=== PATIENT | female | born 1980 | race Caucasian/White ===

== ENCOUNTER 2018-01-10 12:43 | Emergency (ER) | payer OTHER ==
[~2018-01-10] VITALS: Ht 180.3 cm; Wt 72.6 kg
[~2018-01-10 12:43] MED LIST: ADVIL LIQUI-GE200 MG PO; DIFLUCAN150 MG PO; FLEXERIL PO; IBUPROFEN 800800 MG PO; KEFLEX500 MG PO; MEDROXYPROGESTERONE; NAPROSYN500 M1 PO; NAPROSYN500 MG PO; NOHOMEMEDICATIONS; NORCO 5-325 TA1 EACH PO; NORFLEX100 MG PO; PERCOCET 5-3251 EACH PO; PROAIR HFA8.5 GM IH; ROBAXIN500 MG PO; TRAMADOL 50 MG50 MG PO; VICODIN 5-3001 EACH PO; ZPAK PO
[2018-01-10 13:24] LABS: INFLUENZA A ANTIGEN None Detected (None Detect); INFLUENZA B ANTIGEN None Detected (None Detect)
[2018-01-10] MEDS ORDERED: PREDNISONE 10 M10 MG PO (13:31)
[2018-01-10] MEDS ORDERED: NORCO 5-325 TA1 EACH PO (13:31)
[2018-01-10] MEDS ORDERED: ZOVIRAX400 MG PO (13:31)
[2018-01-10 13:49] VITALS: BP 122/75
== END 2018-01-10 13:50 | disposition home or self-care (01) ==
LOC: M.ERS 12:43
PROVIDERS: Physician Assistant
DX: K12.2 Cellulitis and abscess of mouth (principal); Z87.891 Personal history of nicotine dependence

== ENCOUNTER 2018-12-31 18:47 | Emergency (ER) | payer OTHER ==
[~2018-12-31] VITALS: Ht 180.3 cm; Wt 71.2 kg
[~2018-12-31 18:47] MED LIST changes: +PREDNISONE 10 M10 MG PO; +ZOVIRAX400 MG PO
[2018-12-31] MEDS ORDERED: GABAPENTIN 100100 MG PO (19:01)
[2018-12-31] MEDS ORDERED: CELEXA40 MG PO (19:01)
[2018-12-31 19:44] LABS: ABSOLUTE MONOCYTES 0.4 thou/uL (0.0-1.2); ABSOLUTE NEUTROPHILS 5.6 thou/uL (1.6-8.1); BASOPHILS 0.3 %; EOSINOPHILS 0.1 %; HEMATOCRIT 43.6 % (37.0-47.0); HEMOGLOBIN 14.1 gm/dL (12.0-15.0); LYMPHOCYTES 14.3 %; MCH 27.1 pg (26.0-34.0); MCHC 32.2 g/dL (28.0-37.0); MONOCYTES 5.5 %; MPV 9.4 fl. (7.2-11.1); NUCLEATED RBCS 0 /100WBC; PLATELET COUNT* 240 thou/uL (150-400); POLYS 79.8 %; RBC 5.19 mil/uL (4.20-5.00); RDW-CV 12.4 % (10.5-14.5)
[2018-12-31 19:51] LABS: APTT 23.7 Seconds (25.0-31.3); PROTIME 10.4 Seconds (9.20-11.50)
[2018-12-31 20:01] LABS: ANION GAP 10 mmol/L (7-16); BUN 12 mg/dL (7-18); CALCIUM 9.3 mg/dL (8.5-10.1); CHLORIDE 103 mmol/L (98-107); CO2 26 mmol/L (21-32); CREATININE 0.8 mg/dL (0.6-1.3); GLUCOSE 104 mg/dL (70-99); POTASSIUM 3.4 mmol/L (3.5-5.1); SODIUM 139 mmol/L (136-145); TROPONIN-I LEVEL <0.06 ng/mL (<0.06)
[2018-12-31 20:03] LABS: ALBUMIN 4.3 g/dL (3.4-5.0); ALKALINE PHOSPHATASE 58 U/L (46-116); CK-MB MASS < 0.5 ng/mL (<0.5-3.6); LIPASE 71 U/L (73-393); MAGNESIUM 2.1 mg/dL (1.8-2.4); NT-PRO BRAIN NAT PEPTIDE 61 pg/mL (<300); SGOT 18 U/L (15-37); SGPT 23 U/L (30-65); TOTAL BILIRUBIN 0.4 mg/dL (<0.1-1.0); TOTAL PROTEIN 7.9 g/dL (6.4-8.2)
[2018-12-31 20:46] VITALS: BP 135/57
--- NOTE | 2019-01-02 16:32 | EKG ---
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
== END 2018-12-31 21:28 | disposition home or self-care (01) ==
LOC: M.ERS 18:47
PROVIDERS: Family Medicine
DX: T43.622A Poisoning by amphetamines, intentional self-harm, initial encounter (principal); R00.2 Palpitations; Y92.89 Other specified places as the place of occurrence of the external cause; Z87.891 Personal history of nicotine dependence

== ENCOUNTER 2021-10-23 00:32 | Inpatient (IN) | payer OTHER ==
[~2021-10-23] VITALS: Ht 180.3 cm; Wt 67.1 kg
[~2021-10-23 00:32] MED LIST changes: +CELEXA40 MG PO; +GABAPENTIN 100100 MG PO
[2021-10-23 00:33] VITALS: BP 129/73
[2021-10-23 01:26] LABS: HEMATOCRIT 30.9 % (37.0-47.0); HEMOGLOBIN 9.4 gm/dL (12.0-15.0); MCH 23.2 pg (26.0-34.0); MCHC 30.5 g/dL (28.0-37.0); NUCLEATED RBCS 0 /100WBC; PLATELET COUNT* 217 thou/uL (150-400); RBC 4.07 mil/uL (4.20-5.00); RDW-CV 15.8 % (10.5-14.5); WBC 17.4 thou/uL (4.0-11.0)
[2021-10-23 01:31] LABS: URINE BILIRUBIN NEGATIVE (Negative); URINE BLOOD 1+ (Negative); URINE CLARITY CLEAR; URINE COLOR YELLOW; URINE GLUCOSE-RANDOM NEGATIVE (Negative); URINE KETONES NEGATIVE (Negative); URINE LEUKOCYTES-REFLEX NEGATIVE (Negative); URINE NITRITE-REFLEX NEGATIVE (Negative); URINE PROTEIN TRACE (Negative); URINE SPECIFIC GRAVITY 1.025 (1.005-1.030); URINE UROBILINOGEN 0.2 E.U./dl (0.2-1.0)
[2021-10-23 01:37] LABS: CALCIUM 7.6 mg/dL (8.5-10.1); CREATININE 1.1 mg/dL (0.6-1.3)
[2021-10-23 01:38] LABS: POTASSIUM 2.9 mmol/L (3.5-5.1)
[2021-10-23 01:43] LABS: ALBUMIN 3.2 g/dL (3.4-5.0); TOTAL BILIRUBIN 0.3 mg/dL (<0.1-1.0); TOTAL PROTEIN 6.3 g/dL (6.4-8.2)
[2021-10-23 02:11] LABS: HYALINE CASTS 0-3 Few /LPF (None Seen); MUCUS >6 Heavy strn/LPF (None Seen); SQUAMOUS >10 Many /LPF (0-3)
[2021-10-23 02:12] LABS: CRYSTALS None Seen /LPF (None Seen); URINE RBC 3-10 Few /HPF (0-2); URINE WBC-REFLEX 0-5 Rare /HPF (0-5)
[2021-10-23 02:24] LABS: ABSOLUTE LYMPHOCYTES 1.9 thou/uL (0.8-5.3); ABSOLUTE MONOCYTES 0.5 thou/uL (0.0-1.2)
[2021-10-23 02:25] LABS: ANISOCYTOSIS 1+; HYPOCHROMASIA 1+; POLYCHROMASIA 1+
[2021-10-23 02:26] LABS: PLATELET ESTIMATE ADEQUATE
[2021-10-23 04:22] LABS: AMP/METHAMP POSITIVE (Negative); BARBITURATES Negative (Negative); BENZODIAZEPINES POSITIVE (Negative); COCAINE Negative (Negative); METHADONE Negative (Negative); OPIATES Negative (Negative); PCP Negative (Negative); THC POSITIVE (Negative)
[2021-10-23 06:30] VITALS: BP 98/50
[2021-10-23 12:00] VITALS: BP 101/57
[2021-10-23] MEDS ORDERED: AUGMENTIN 875-1 EACH PO (13:40)
--- NOTE | 2021-10-23 13:54 | EKG ---
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1980 Requested By: Parul Alvares Order Number: [id number] MD: Joey Medina Measurements Intervals [place] Rate: 111 P: 71 ND: 139 QRS: -156 QRSD: 118 T: 49 QT: 375 QTc: 510 Interpretive Statements Sinus tachycardia Indeterminate QRS axis Compared to ECG 12/31/2018 18:54:32 Heart rate has increased Electronically Signed On 10-23-2021 13:54:12 POLYSOMNOGRAPHIC TECHNICIAN by Joey Medina [email or web address] <ELECTRONICALLY SIGNED> By: Joey Medina MD, [facility] 10/23/21 1354 0034 0034 Joey Medina MD, [facility] /EPI
[2021-10-23 14:28] VITALS: BP 101/57
== END 2021-10-23 14:39 | disposition home or self-care (01) | DRG 917 ==
LOC: M.ERS 00:32 → M.TBA-ER 05:07 → M.2W 07:58
PROVIDERS: Emergency Medicine; ADMIT Internal Medicine; ATTEND Internal Medicine
DX: T40.601A Poisoning by unspecified narcotics, accidental (unintentional), initial encounter (principal); J69.0 Pneumonitis due to inhalation of food and vomit; S27.322A Contusion of lung, bilateral, initial encounter; Z20.822 Contact with and (suspected) exposure to COVID-19; Z87.891 Personal history of nicotine dependence; X58.XXXA Exposure to other specified factors, initial encounter; Y93.89 Activity, other specified; Y92.89 Other specified places as the place of occurrence of the external cause; Y99.8 Other external cause status